=== PATIENT | male | born 1955 | race Caucasian/White ===

== ENCOUNTER 2019-12-26 11:53 | Inpatient (IN) | payer OTHER ==
[2019-12-26] MEDS ORDERED: Sodium Chloride 0.9% 2.5 ML Syringe FLUSH PRN ×2 (13:15→16:49)
[2019-12-26] MEDS ORDERED: Sodium Chloride 0.9% 10 ML Syringe FLUSH PRN ×2 (13:15)
[2019-12-26] MEDS ORDERED: Sodium Chloride 0.9% 1,000 ML IV ONE (13:15)
[2019-12-26] MEDS ORDERED: Prochlorperazine 10 MG/2 ML SDV IVPUSH ONE (13:16)
--- NOTE | 2019-12-26 14:17 | EDM.PDOC ---
ED [facility] GENERAL MEDICAL PROBLEM - General Chief Complaint: Gastrointestinal Problem Stated Complaint: DIAHREAH Time Seen by Provider: 12/26/19 12:20 - History of Present Illness INITIAL COMMENTS - FREE TEXT/NARRATIVE: HISTORY AND PHYSICAL: History of present illness: This 64-year-old male communicates by using his cell phone and having it read out because he has a tracheostomy. He had significant cancer in the past and has multiple medical problems. He reports today that he comes in with diffuse abdominal cramping, frequent diarrhea, and some intermittent blood from wiping. There is no dysentery or blood from the stool. He reports he feels dehydrated and is very thirsty. He rates his symptoms as severe. Denies any other associated signs or symptoms. No other modifying, aggravating or relieving factors. Review of systems: A 10-point review of systems, other than pertinent positives and negatives as stated per HPI, is otherwise negative. Past medical history: As per history of present illness and as reviewed below otherwise noncontributory. Surgical history: As per history of present illness and as reviewed below otherwise noncontributory. Social history: No reported history of drug or alcohol abuse. Family history: As per history of present illness and as reviewed below otherwise noncontributory. Physical exam: VITAL SIGNS: Reviewed. GENERAL: Appears chronically ill but not toxic. HEAD: No signs of head trauma. EYES: Pupils are equal. Extraocular motions intact. EARS: Hearing grossly intact. MOUTH: Oropharynx is normal. With dry mucous membranes NECK: No adenopathy, no JVD. Tracheostomy is in place and is clean dry and intact CHEST: Chest with clear breath sounds bilaterally. No wheezes, rales, or rhonchi. CARDIAC: Regular rate and rhythm. Normal S1 and S2, without murmurs, gallops, or rubs. VASCULAR: Peripheral pulses normal and equal in all extremities. ABDOMEN: Soft, mild diffuse tenderness. No distention. No rebound or guarding. No masses palpated. MUSCULOSKELETAL: Good range of motion of all major joints. Extremities without clubbing, cyanosis or edema. NEUROLOGIC EXAM: Alert and oriented x 3. No focal sensory or motor deficits. Speech normal. Follows commands. PSYCHIATRIC: Mood normal. SKIN: No rash or lesions. Initial Differential Diagnosis & Plan: Patient has diarrhea with mild abdominal cramping. Etiologies include viral infection, bacterial infection, bowel obstruction, ischemic bowel. We will obtain a CT scan with abdomen pelvis and give IV fluids and other medications to see how he is doing. We will perform a comprehensive laboratory work-up. Definitive disposition and diagnosis as appropriate pending reevaluation and review of above. - Related Data Allergies Allergy/AdvReac Type Severity Reaction Status Date / Time gabapentin Allergy Cannot Verified 12/26/19 12:48 Remember midazolam HCl [From Versed] Allergy Seizure Verified 12/26/19 12:48 venom-honey bee Allergy Difficulty Verified 12/26/19 12:48 [bee venom (honey bee)] Standing Home Meds: Home Meds Simvastatin [Zocor] 40 mg PO BEDTIME 08/20/17 [History] Lubricating Top Jelly Bacterio 1 applic TOP ASDIRECTED 12/27/18 [History] Sennosides 8.6 mg PO BID 12/27/18 [History] lisinopriL [Prinivil] 20 mg PO DAILY 12/26/19 [History] Past Medical History HEENT History: Reports: Impaired Vision Other HEENT History: wears glasses Cardiovascular History: Reports: High Cholesterol, Hypertension Respiratory History: Reports: Other (See Below) Other Respiratory History: SOB from radiation tx to throat Gastrointestinal History: Reports: GERD Other Gastrointestinal History: current esophageal cancer Genitourinary History: Reports: None Musculoskeletal History: Reports: Arthritis, Fracture Other Musculoskeletal History: states "multiple" fx Neurological History: Reports: None Psychiatric History: Reports: None Endocrine/Metabolic History: Reports: Diabetes, Type II, Obesity/BMI 30+ Other Endocrine/Metabolic History: pt states he's no longer on medication for DM Hematologic History: Reports: None Immunologic History: Reports: None Oncologic (Cancer) History: Reports: Other (See Below) Other Oncologic History: Throat Dermatologic History: Reports: None Other Dermatologic History: rash on right hand - Infectious Disease History Infectious Disease History: Reports: Chicken Pox, Measles - Past Surgical History Head Surgeries/Procedures: Reports: None Cardiovascular Surgical History: Reports: None Respiratory Surgical History: Reports: None GI Surgical History: Reports: None Male Surgical History: Reports: None Endocrine Surgical History: Reports: None Musculoskeletal Surgical History: Reports: None Oncologic Surgical History: Reports: None Other Oncologic Surgeries/Procedures: Radiation Therapy Social & Family History - Family History Family Medical History: Noncontributory - Tobacco Use Tobacco Use Status *Q: Never Tobacco User - Caffeine Use Caffeine Use: Reports: None - Recreational Drug Use Recreational Drug Use: No ED ROS GENERAL - Review of Systems Review Of Systems: See Below (noted) ED EXAM, GI/ABD - Physical Exam Exam: See Below (noted) #1 Interpretation EKG Interpretation Comments: 12 lead EKG interpretation Obtained: December 26, 2019 at 1349 Rhythm: Junctional rhythm Rate: 65 [place]: Left axis deviation Intervals: Prolonged QT interval [address]/T Segments: Nonspecific T wave abnormality Interpretation: Junctional rhythm, left axis deviation, prolonged QT interval, nonspecific T wave abnormality Course - Vital Signs Last Recorded V/S: Last Vital Signs Temp 96 F L 12/26/19 12:46 Pulse 68 12/26/19 18:43 Resp 16 12/26/19 12:46 BP 153/101 H 12/26/19 18:43 Pulse Ox 94 L 12/26/19 18:43 - Orders/Labs/Meds Orders: Active Orders 24 hr Category Date Time Status EKG 12 Lead [EKG Documentation Completion] [RC] STAT Care 12/26/19 13:16 Active C DIFFICILE AG/TOXIN W/REFLEX [RM] Stat Lab 12/26/19 15:51 Ordered STOOL CULTURE/SHIGA TOXIN [MREF] Stat Lab 12/26/19 15:51 Ordered Medication Orders Enoxaparin Sodium (Lovenox) 40 mg SUBCUT Q24H [facility] Dextrose/Sodium Chloride (Dextrose 5%-1/2 Ns) 1,000 mls @ 125 mls/hr IV Q8H [facility] Magnesium Sulfate 4 gm/ Premix 100 mls @ 33.333 mls/hr IV ONETIME ONE Stop: 12/26/19 19:48 Last Admin: 12/26/19 18:09 Dose: 33.333 mls/hr Documented by: NANCY Metronidazole 500 mg/ Premix 100 mls @ 100 mls/hr IV Q6H Y[facility] Metronidazole 500 mg/ Premix 100 mls @ 100 mls/hr IV ONETIME ONE Stop: 12/26/19 19:14 Last Admin: 12/26/19 18:09 Dose: 100 mls/hr Documented by: NANCY Levofloxacin/Dextrose 750 mg/ (Premix) 150 mls @ 100 mls/hr IV Q24H [facility] Morphine Sulfate (Morphine) 2 mg IVPUSH Q2H PRN PRN Reason: Pain (severe 7-10) Ondansetron HCl (Zofran) 4 mg IVPUSH Q4H PRN PRN Reason: Nausea Sodium Chloride (Saline Flush) 2.5 ml FLUSH ASDIRECTED PRN PRN Reason: Keep Vein Open Labs: Laboratory Tests 12/26/19 12/26/19 12/26/19 Range/Units 14:13 14:30 14:30 WBC 4.27 (4.0-11.0) K/uL RBC 3.84 L (4.50-5.90) M/uL Hgb 11.1 L (13.0-17.0) g/dL Hct 34.0 L (38.0-50.0) % MCV 88.5 (80.0-98.0) fL MCH 28.9 (27.0-32.0) pg MCHC 32.6 (31.0-37.0) g/dL RDW Std Deviation 50.2 (28.0-62.0) fl RDW Coeff of Aster 16 H (11.0-15.0) % Plt Count 224 (150-400) K/uL MPV 9.80 (7.40-12.00) fL Add Manual Diff YES Neutrophils % (Manual) 71 (48.0-80.0) % Band Neutrophils % 15 % Lymphocytes % (Manual) 6 L (16.0-40.0) % Monocytes % (Manual) 8 (0.0-15.0) % Nucleated RBC % 0.0 /100WBC Absolute Seg Neuts 3.0 (1.4-5.7) Band Neutrophils # 0.6 Lymphocytes # (Manual) 0.3 L (0.6-2.4) Monocytes # (Manual) 0.3 (0.0-0.8) Nucleated RBCs # 0 K/uL Sodium 140 (136-148) mmol/L Potassium 2.8 L (3.5-5.1) mmol/L Chloride 100 (98-107) mmol/L Carbon Dioxide 31.1 (21.0-32.0) mmol/L BUN 15 (7.0-18.0) mg/dL Creatinine 1.3 (0.8-1.3) mg/dL Est Cr Clr Drug Dosing 52.96 mL/min Estimated GFR (MDRD) 55.4 ml/min Glucose 73 L (74-106) mg/dL Calcium 8.1 L (8.5-10.1) mg/dL Magnesium 1.6 L (1.8-2.4) mg/dL Total Bilirubin 0.6 (0.2-1.0) mg/dL AST 37 (15-37) IU/L ALT 27 (14-63) IU/L Alkaline Phosphatase 54 (46-116) U/L Total Protein 7.4 (6.4-8.2) g/dL Albumin 3.5 (3.4-5.0) g/dL Globulin 3.9 (2.6-4.0) g/dL Albumin/Globulin Ratio 0.9 (0.9-1.6) Lipase 100 (73-393) U/L Urine Color Urine Appearance Urine pH (5.0-8.0) Ur Specific [place] (1.001-1.035) Urine Protein (NEGATIVE) mg/dL Urine Glucose (UA) (NEGATIVE) mg/dL Urine Ketones (NEGATIVE) mg/dL Urine Occult Blood (NEGATIVE) Urine Nitrite (NEGATIVE) Urine Bilirubin (NEGATIVE) Urine Urobilinogen (<2.0) EU/dL Ur Leukocyte Esterase (NEGATIVE) Urine RBC (0-2/HPF) Urine WBC (0-5/HPF) Ur Epithelial Cells (NONE-FEW) Urine Bacteria (NEGATIVE) 12/26/19 Range/Units 15:30 WBC (4.0-11.0) K/uL RBC (4.50-5.90) M/uL Hgb (13.0-17.0) g/dL Hct (38.0-50.0) % MCV (80.0-98.0) fL MCH (27.0-32.0) pg MCHC (31.0-37.0) g/dL RDW Std Deviation (28.0-62.0) fl RDW Coeff of Aster (11.0-15.0) % Plt Count (150-400) K/uL MPV (7.40-12.00) fL Add Manual Diff Neutrophils % (Manual) (48.0-80.0) % Band Neutrophils % % Lymphocytes % (Manual) (16.0-40.0) % Monocytes % (Manual) (0.0-15.0) % Nucleated RBC % /100WBC Absolute Seg Neuts (1.4-5.7) Band Neutrophils # Lymphocytes # (Manual) (0.6-2.4) Monocytes # (Manual) (0.0-0.8) Nucleated RBCs # K/uL Sodium (136-148) mmol/L Potassium (3.5-5.1) mmol/L Chloride (98-107) mmol/L Carbon Dioxide (21.0-32.0) mmol/L BUN (7.0-18.0) mg/dL Creatinine (0.8-1.3) mg/dL Est Cr Clr Drug Dosing mL/min Estimated GFR (MDRD) ml/min Glucose (74-106) mg/dL Calcium (8.5-10.1) mg/dL Magnesium (1.8-2.4) mg/dL Total Bilirubin (0.2-1.0) mg/dL AST (15-37) IU/L ALT (14-63) IU/L Alkaline Phosphatase (46-116) U/L Total Protein (6.4-8.2) g/dL Albumin (3.4-5.0) g/dL Globulin (2.6-4.0) g/dL Albumin/Globulin Ratio (0.9-1.6) Lipase (73-393) U/L Urine Color YELLOW Urine Appearance CLEAR Urine pH 7.0 (5.0-8.0) Ur Specific [place] 1.020 (1.001-1.035) Urine Protein 30 H (NEGATIVE) mg/dL Urine Glucose (UA) NEGATIVE (NEGATIVE) mg/dL Urine Ketones NEGATIVE (NEGATIVE) mg/dL Urine Occult Blood NEGATIVE (NEGATIVE) Urine Nitrite NEGATIVE (NEGATIVE) Urine Bilirubin NEGATIVE (NEGATIVE) Urine Urobilinogen 0.2 (<2.0) EU/dL Ur Leukocyte Esterase NEGATIVE (NEGATIVE) Urine RBC 0-1 (0-2/HPF) Urine WBC 0-1 (0-5/HPF) Ur Epithelial Cells RARE (NONE-FEW) Urine Bacteria RARE (NEGATIVE) Meds: Medications Generic Name Dose Route Start Last Admin Trade Name Freq PRN Reason Stop Dose Admin Enoxaparin Sodium 40 mg 12/26/19 17:00 Lovenox SUBCUT Q24H [facility] Dextrose/Sodium Chloride 1,000 mls @ 125 mls/hr 12/26/19 17:00 Dextrose 5%-1/2 Ns IV Q8H [facility]USU[facility] Magnesium Sulfate 4 gm/ Premix 100 mls @ 33.333 mls/hr 12/26/19 16:49 12/26/19 18:09 IV 12/26/19 19:48 33.333 mls/hr ONETIME ONE Administration Metronidazole 500 mg/ Premix 100 mls @ 100 mls/hr 12/27/19 00:00 IV Q6H YUSUF Metronidazole 500 mg/ Premix 100 mls @ 100 mls/hr 12/26/19 18:15 12/26/19 18:09 IV 12/26/19 19:14 100 mls/hr ONETIME ONE Administration Levofloxacin/Dextrose 750 mg/ 150 mls @ 100 mls/hr 12/26/19 21:00 Premix IV Q24H YUSUF Morphine Sulfate 2 mg 12/26/19 16:47 Morphine IVPUSH Q2H PRN Pain (severe 7-10) Ondansetron HCl 4 mg 12/26/19 16:47 Zofran IVPUSH Q4H PRN Nausea Sodium Chloride 2.5 ml 12/26/19 16:49 Saline Flush FLUSH ASDIRECTED PRN Keep Vein Open Discontinued Medications Generic Name Dose Route Start Last Admin Trade Name Freq PRN Reason Stop Dose Admin Sodium Chloride 1,000 mls @ 999 mls/hr 12/26/19 13:15 12/26/19 14:26 Normal Saline IV 12/26/19 14:15 999 mls/hr BOLUS ONE Administration Potassium Chloride/Sodium Chloride 1,000 mls @ 500 mls/hr 12/26/19 16:00 12/26/19 16:10 Normal Saline With 20 Meq Kcl IV 12/26/19 17:59 500 mls/hr ONETIME ONE Administration Levofloxacin/Dextrose 750 mg/ 150 mls @ 100 mls/hr 12/26/19 16:30 12/26/19 18:38 Premix IV Not Given Q24H [facility]USUF Potassium Bicarbonate 50 meq 12/26/19 15:23 12/26/19 16:00 Klor-Con Ef PO 12/26/19 15:24 50 meq NOW STA Administration Prochlorperazine Edisylate 10 mg 12/26/19 13:16 12/26/19 14:26 Compazine IVPUSH 12/26/19 13:17 10 mg ONETIME ONE Administration Sodium Chloride 10 ml 12/26/19 13:15 Saline Flush FLUSH ASDIRECTED PRN Keep Vein Open Sodium Chloride 10 ml 12/26/19 13:15 Saline Flush FLUSH ASDIRECTED PRN Keep Vein Open Sodium Chloride 2.5 ml 12/26/19 13:15 Saline Flush FLUSH ASDIRECTED PRN Keep Vein Open - Re-Assessments/Exams Free Text/Narrative Re-Assessment/Exam: 12/26/19 18:49 Patient found to have significant hypokalemia, no acute renal failure, and hypomagnesemia. We have started replacement of his potassium and magnesium in the emergency department. He is found to be COVID-19 positive. This is created some difficulty since he is trached. We will admit him to the hospital. My diagnostic impression: 1. Acute dehydration 2. COVID-19 positive status with GI symptoms 3. Acute hypokalemia 4. Acute hypomagnesemia Departure - Departure Time of Disposition: 18:50 Disposition: Admitted As Inpatient 65 Clinical Impression: Viral infection - Discharge Information *PRESCRIPTION DRUG MONITORING PROGRAM REVIEWED*: Not Applicable *COPY OF PRESCRIPTION DRUG MONITORING REPORT IN PATIENT SNEHA: Not Applicable Sepsis Event Note (ED) - Evaluation Sepsis Screening Result: No Definite Risk - Focused Exam Vital Signs: Vital Signs Temp Pulse Resp BP Pulse Ox 12/26/19 14:30 64 94 L 12/26/19 14:13 66 129/96 H 94 L 12/26/19 13:59 65 150/95 H 94 L 12/26/19 12:46 96 F L 65 16 142/93 H 93 L - My Orders Last 24 Hours: My Active Orders 12/26/19 13:16 EKG 12 Lead [EKG Documentation Completion] [RC] STAT 12/26/19 15:51 C DIFFICILE AG/TOXIN W/REFLEX [RM] Stat STOOL CULTURE/SHIGA TOXIN [MREF] Stat - Assessment/Plan Last 24 Hours: My Active Orders 12/26/19 13:16 EKG 12 Lead [EKG Documentation Completion] [RC] STAT 12/26/19 15:51 C DIFFICILE AG/TOXIN W/REFLEX [RM] Stat STOOL CULTURE/SHIGA TOXIN [MREF] Stat
[2019-12-26 15:02] LABS: CARBON DIOXIDE,CO2 31.1 mmol/L (21.0-32.0); POTASSIUM,K 2.8 mmol/L (3.5-5.1)
[2019-12-26] MEDS ORDERED: Potassium Bicarbonate 25 MEQ Tab.EFF PO STA (15:23)
[2019-12-26] MEDS ORDERED: Potassium Chloride Riders 20 MEQ in Premix Bag 1 BAG IV ONE (15:23)
--- NOTE | 2019-12-26 15:25 | CT ---
Indication: Abdominal pain and vomiting, history of laryngeal cancer Technique: Nonenhanced axial CT imaging through the abdomen and pelvis. Sagittal and coronal reconstructions are provided. Comparison: CT abdomen pelvis without contrast 08/24/2017 Findings: There is unremarkable noncontrast appearance of the liver, gallbladder, spleen, pancreas and adrenal gland. No lymphadenopathy is identified in the abdomen and pelvis. There is normal caliber of the abdominal aorta. There are multiple nonobstructing left renal stones, largest measuring 10 mm. A few punctate nonobstructing stones are also noted in the right kidney. There is no hydronephrosis. The stomach and duodenum are unremarkable. There are no abnormally dilated small bowel loops. The appendix is noninflamed. There are areas of colonic wall thickening, worst in the ascending colon, descending colon, and rectum. There is mild associated fat stranding. There is no free fluid. There is no pneumoperitoneum. Degenerative changes are noted in the spine, significantly changed from prior. Small pleural effusion is partially visualized on the right. There is moderate left lung base atelectasis. Impression: 1. Scattered areas of colonic wall thickening with adjacent inflammatory fat stranding, concerning for acute colitis. 2. Bilateral nephrolithiasis. No urinary obstruction. 3. Partially visualized small right pleural effusion. Please note that all CT scans at this facility use dose modulation, iterative reconstruction, and/or weight-based dosing when appropriate to reduce radiation dose to as low as reasonably achievable. Dictated by Letha Jiménez MD @ Dec 26 2019 3:05PM Signed by Dr. Letha Jiménez @ Dec 26 2019 3:23PM
[2019-12-26] MEDS ORDERED: metroNIDAZOLE/Normal Saline 500 MG in Premix Bag 1 BAG IV ONE ×2 (15:51→18:15)
[2019-12-26] MEDS ORDERED: NS + KCl 20mEq/L 1,000 ML IV ONE (16:00)
[2019-12-26] MEDS ORDERED: Levofloxacin/Dextrose 5%-Water 750 MG in Premix Bag 1 BAG IV SCH (16:30)
--- NOTE | 2019-12-26 16:38 | PCM.HP.2 ---
H&P History of Present Illness - General Date of Service: 12/26/19 Admit Problem/Dx: Admission Diagnosis/Problem Admission Diagnosis/Problem Abdominal pain Source of Information: Patient, Family (sister at bedside to help with communication) History Limitations: Reports: No Limitations - History of Present Illness Initial Comments - Free Text/Narative: This 64 year old male with pmh of laryngeal cancer s/p trach, HTN and peripheral neuropathy presented to the ED today with weakness, diarrhea x 2 weeks, N?V and overall not feeling well. he reports he has had some loose stools, which have been present for approximately 2 weeks. No recent antibiotic use, no other sick contacts and no recent chemotherapy. He reports the last chemo or radiation was 5 years ago. He reports he has been staying out of the [facility], but sisters provide care for him and have been out and about. He reports the stool is brown in color, no black bloody stools. reports abdominal pain is cramping and sharp as well. reports rectum is very irritated from stools. Intermittent nausea, but is hungry. Tolerating CL at home. No urinary concerns. NO chest pain or SOB. Trach is stable, has cough and sputum production, but nothing more than normal. Denies current tobacco use, alcohol use or recreational drug use. NO recent history of colonoscopy. He has had abdominal surgeries with mesh placement in the past. [facility] and was instructed to come [facility] as imodium at home was not helping. In the ED no leukocytosis noted, but bandemia is noted with 15% bands. Hgb 11.1 Hypokalemia, 2.[address] abdomen/ pelvis revealed areas of colonic wall thickening, worst in ascending color, descending colon and rectum, with mild associated fat stranding. No free fluid and no pneumoperitoneum. He was given IVFs and Flagyl in the ED. Admission for colitis, abdominal pain and hypokalemia. PCP, [place] [facility] - Related Data Allergies/Adverse Reactions: Allergies Allergy/AdvReac Type Severity Reaction Status Date / Time gabapentin Allergy Cannot Verified 12/26/19 12:48 Remember midazolam HCl [From Versed] Allergy Seizure Verified 12/26/19 12:48 venom-honey bee Allergy Difficulty Verified 12/26/19 12:48 [bee venom (honey bee)] Standing Home Medications: Home Meds Simvastatin [Zocor] 40 mg PO BEDTIME 08/20/17 [History] Lubricating Top Jelly Bacterio 1 applic TOP ASDIRECTED 12/27/18 [History] Sennosides 8.6 mg PO BID 12/27/18 [History] lisinopriL [Prinivil] 20 mg PO DAILY 12/26/19 [History] Past Medical History HEENT History: Reports: Impaired Vision Other HEENT History: wears glasses Cardiovascular History: Reports: High Cholesterol, Hypertension Respiratory History: Reports: Other (See Below) Other Respiratory History: SOB from radiation tx to throat Gastrointestinal History: Reports: GERD Other Gastrointestinal History: current esophageal cancer Genitourinary History: Reports: None Musculoskeletal History: Reports: Arthritis, Fracture Other Musculoskeletal History: states "multiple" fx Neurological History: Reports: None Psychiatric History: Reports: None Endocrine/Metabolic History: Reports: Diabetes, Type II, Obesity/BMI 30+ Other Endocrine/Metabolic History: pt states he's no longer on medication for DM Hematologic History: Reports: None Immunologic History: Reports: None Oncologic (Cancer) History: Reports: Other (See Below) Other Oncologic History: Throat Dermatologic History: Reports: None Other Dermatologic History: rash on right hand - Infectious Disease History Infectious Disease History: Reports: Chicken Pox, Measles - Past Surgical History Head Surgeries/Procedures: Reports: None Cardiovascular Surgical History: Reports: None Respiratory Surgical History: Reports: None GI Surgical History: Reports: None Male Surgical History: Reports: None Endocrine Surgical History: Reports: None Musculoskeletal Surgical History: Reports: None Oncologic Surgical History: Reports: None Other Oncologic Surgeries/Procedures: Radiation Therapy Social & Family History - Family History Family Medical History: Noncontributory - Tobacco Use Tobacco Use Status *Q: Never Tobacco User - Caffeine Use Caffeine Use: Reports: None - Recreational Drug Use Recreational Drug Use: No H&P Review of Systems - Review of Systems: Review Of Systems: See Below General: Reports: Chills, Malaise, Weakness, Fatigue, Decreased Appetite HEENT: Reports: No Symptoms. Denies: Headaches, Hearing Changes, Sore Throat Pulmonary: Reports: Cough, Sputum (but not any different than normal, and no change in color). Denies: Shortness of Breath Cardiovascular: Reports: No Symptoms. Denies: Chest Pain, Edema, Lightheadedness Gastrointestinal: Reports: Abdominal Pain (lower abdomen), Diarrhea, Decreased Appetite, Distension, Nausea, Other (bloated). Denies: Bloody Stool Skin: Reports: No Symptoms Psychiatric: Reports: No Symptoms Neurological: Reports: No Symptoms Hematologic/Lymphatic: Reports: No Symptoms Immunologic: Reports: No Symptoms Exam - Exam Exam: See Below - Vital Signs Vital Signs: Last Vital Signs Temp 96 F L 12/26/19 12:46 Pulse 65 12/26/19 12:46 Resp 16 12/26/19 12:46 BP 142/93 H 12/26/19 12:46 Pulse Ox 93 L 12/26/19 12:46 Weight: 86.183 kg - Exam Quality Assessment: DVT Prophylaxis General: Alert, Oriented, Cooperative HEENT: Conjunctiva Clear, Mucosa Moist & [place], Other (trach in place, no erythema or drainage) Neck: Supple, Other (surgical deformity from resection and trach. ) Lungs: Clear to Auscultation, Normal Respiratory Effort, Other (bronchial lung sounds, otherwise clear) Cardiovascular: Regular Rate, Regular Rhythm, Normal S1 GI/Abdominal Exam: Soft, Tender (lower abdomen). No: Normal Bowel Sounds (hyperactive) Extremities: Normal Inspection, Normal Range of Motion, Non-Tender Neuro Extensive - Mental Status: Alert, Oriented x3, Normal Mood/Affect Neuro Extensive - Motor, Sensory, Reflexes: CN II-XII Intact Psychiatric: Alert, Normal Affect, Normal Mood - Patient Data Lab Results Last 24 hrs: Laboratory Results - last 24 hr 12/26/19 12/26/19 12/26/19 Range/Units 14:30 14:30 15:30 WBC 4.27 (4.0-11.0) K/uL RBC 3.84 L (4.50-5.90) M/uL Hgb 11.1 L (13.0-17.0) g/dL Hct 34.0 L (38.0-50.0) % MCV 88.5 (80.0-98.0) fL MCH 28.9 (27.0-32.0) pg MCHC 32.6 (31.0-37.0) g/dL RDW Std Deviation 50.2 (28.0-62.0) fl RDW Coeff of Aster 16 H (11.0-15.0) % Plt Count 224 (150-400) K/uL MPV 9.80 (7.40-12.00) fL Add Manual Diff YES Neutrophils % (Manual) 71 (48.0-80.0) % Band Neutrophils % 15 % Lymphocytes % (Manual) 6 L (16.0-40.0) % Monocytes % (Manual) 8 (0.0-15.0) % Nucleated RBC % 0.0 /100WBC Absolute Seg Neuts 3.0 (1.4-5.7) Band Neutrophils # 0.6 Lymphocytes # (Manual) 0.3 L (0.6-2.4) Monocytes # (Manual) 0.3 (0.0-0.8) Nucleated RBCs # 0 K/uL Sodium 140 (136-148) mmol/L Potassium 2.8 L (3.5-5.1) mmol/L Chloride 100 (98-107) mmol/L Carbon Dioxide 31.1 (21.0-32.0) mmol/L BUN 15 (7.0-18.0) mg/dL Creatinine 1.3 (0.8-1.3) mg/dL Est Cr Clr Drug Dosing 52.96 mL/min Estimated GFR (MDRD) 55.4 ml/min Glucose 73 L (74-106) mg/dL Calcium 8.1 L (8.5-10.1) mg/dL Total Bilirubin 0.6 (0.2-1.0) mg/dL AST 37 (15-37) IU/L ALT 27 (14-63) IU/L Alkaline Phosphatase 54 (46-116) U/L Total Protein 7.4 (6.4-8.2) g/dL Albumin 3.5 (3.4-5.0) g/dL Globulin 3.9 (2.6-4.0) g/dL Albumin/Globulin Ratio 0.9 (0.9-1.6) Lipase 100 (73-393) U/L Urine Color YELLOW Urine Appearance CLEAR Urine pH 7.0 (5.0-8.0) Ur Specific [place] 1.020 (1.001-1.035) Urine Protein 30 H (NEGATIVE) mg/dL Urine Glucose (UA) NEGATIVE (NEGATIVE) mg/dL Urine Ketones NEGATIVE (NEGATIVE) mg/dL Urine Occult Blood NEGATIVE (NEGATIVE) Urine Nitrite NEGATIVE (NEGATIVE) Urine Bilirubin NEGATIVE (NEGATIVE) Urine Urobilinogen 0.2 (<2.0) EU/dL Ur Leukocyte Esterase NEGATIVE (NEGATIVE) Urine RBC 0-1 (0-2/HPF) Urine WBC 0-1 (0-5/HPF) Ur Epithelial Cells RARE (NONE-FEW) Urine Bacteria RARE (NEGATIVE) Result Diagrams: 12/26/19 14:30 12/26/19 14:30 Sepsis Event Note - Evaluation Sepsis Screening Result: No Definite Risk - Focused Exam Vital Signs: Vital Signs Temp Pulse Resp BP Pulse Ox 12/26/19 12:46 96 F L 65 16 142/93 H 93 L - Problem List (1) Colitis SNOMED Code(s): 89629361 ICD Code: K52.9 - NONINFECTIVE GASTROENTERITIS AND COLITIS, UNSPECIFIED Status: Acute Current Visit: Yes (2) Diarrhea SNOMED Code(s): 41611335 ICD Code: R19.7 - DIARRHEA, UNSPECIFIED Status: Acute Current Visit: Yes (3) COVID-19 SNOMED Code(s): 406443866 ICD Code: U07.1 - COVID-19 Status: Acute Current Visit: Yes (4) Hx of laryngeal cancer SNOMED Code(s): 594957969, 094574709 ICD Code: Z85.21 - PERSONAL HISTORY OF MALIGNANT NEOPLASM OF LARYNX Status: Chronic Current Visit: Yes (5) Tracheostomy dependent SNOMED Code(s): 211980383 ICD Code: Z93.0 - TRACHEOSTOMY STATUS Status: Chronic Current Visit: Yes (6) HTN (hypertension) SNOMED Code(s): 30535673 ICD Code: I10 - ESSENTIAL (PRIMARY) HYPERTENSION Status: Chronic Current Visit: Yes (7) Peripheral neuropathy SNOMED Code(s): 457632536 ICD Code: G62.9 - POLYNEUROPATHY, UNSPECIFIED Status: Chronic Current Visit: Yes (8) Hypokalemia SNOMED Code(s): 69128415 ICD Code: E87.6 - HYPOKALEMIA Status: Acute Current Visit: Yes (9) Hypomagnesemia SNOMED Code(s): 738322596 ICD Code: E83.42 - HYPOMAGNESEMIA Status: Acute Current Visit: Yes Problem List Initiated/Reviewed/Updated: Yes Orders Last 24hrs: Active Orders 24 hr Category Date Time Status Patient Status [ADT] Routine ADT 12/26/19 15:53 Active EKG 12 Lead [EKG Documentation Completion] [RC] STAT Care 12/26/19 13:16 Active C DIFFICILE AG/TOXIN W/REFLEX [RM] Stat Lab 12/26/19 15:51 Ordered STOOL CULTURE/SHIGA TOXIN [MREF] Stat Lab 12/26/19 15:51 Ordered Levofloxacin/Dextrose 5%-Water [Levaquin in D5W 750 MG/ Med 12/26/19 16:30 Ordered 150 ML] 750 mg Premix Bag 1 bag IV Q24H NS + KCl 20mEq/L [Normal Saline with 20 mEq KCl] 1,000 Med 12/26/19 16:00 Active ml IV ONETIME Sodium Chloride 0.9% [Saline Flush] Med 12/26/19 13:15 Active 10 ml FLUSH ASDIRECTED PRN Sodium Chloride 0.9% [Saline Flush] Med 12/26/19 13:15 Active 10 ml FLUSH ASDIRECTED PRN Sodium Chloride 0.9% [Saline Flush] Med 12/26/19 13:15 Active 2.5 ml FLUSH ASDIRECTED PRN metroNIDAZOLE/Normal Saline [Flagyl 500 MG in NS 100 ML Med 12/26/19 15:51 Active ] 500 mg Premix Bag 1 bag IV ONETIME Saline Lock Insert [OM.PC] Stat Oth 12/26/19 13:15 Ordered Medication Orders Potassium Chloride/Sodium Chloride (Normal Saline With 20 Meq Kcl) 1,000 mls @ 500 mls/hr IV ONETIME ONE Stop: 12/26/19 17:59 Last Admin: 12/26/19 16:10 Dose: 500 mls/hr Documented by: NANCY Metronidazole 500 mg/ Premix 100 mls @ 100 mls/hr IV ONETIME ONE Stop: 12/26/19 16:50 Levofloxacin/Dextrose 750 mg/ (Premix) 150 mls @ 100 mls/hr IV Q24H YUSUF Sodium Chloride (Saline Flush) 10 ml FLUSH ASDIRECTED PRN PRN Reason: Keep Vein Open Sodium Chloride (Saline Flush) 10 ml FLUSH ASDIRECTED PRN PRN Reason: Keep Vein Open Sodium Chloride (Saline Flush) 2.5 ml FLUSH ASDIRECTED PRN PRN Reason: Keep Vein Open Assessment/Plan Comment:: This 64 year old male admitted with diarrhea, dehydration, hypokalemia and colitis, found to be COVID 19 positive. 1. Abdominal pain, diarrhea, colitis - CT revealed colitis - Obtain stool studies - Continue with Flagyl add Levaquin - IVFs with D51/2 NS due to lower blood glucoses - Check BS every 6 hours - Bowel rest - Morphine PRN pain - Zofran PRN nausea 2. Hypokalemia, hypomagnesemia - Replaced with 70 meq in ED, PO and IV - Give 4 gm IV Magnesium - Recheck in am. 3. Covid 19 - Could be cause of colitis - Monitor - No respiratory symptoms currently 4. HTN - NPO, monitor overnight with IVF hydration 5. Tracheostomy: - Cares per nursing - sister helps with communications - suctioning PRN VTE prophylaxis: Lovenox Dispo: - Mortality Measure Prognosis:: Good
[2019-12-26] MEDS ORDERED: Morphine 2 MG/ML SYRINGE IVPUSH PRN (16:47)
[2019-12-26] MEDS ORDERED: Ondansetron 4 MG/2 ML SDV IVPUSH PRN (16:47)
[2019-12-26] MEDS ORDERED: Magnesium Sulfate/Water 4 GM in Premix Bag 1 BAG IV ONE (16:49)
[2019-12-26] MEDS: Enoxaparin 40 MG/0.4 ML Syringe SUBCUT SCH (20:01)
[2019-12-26] MEDS: Dextrose 5%-0.45% NaCl 1,000 ML IV SCH (20:04)
[2019-12-26] MEDS: Levofloxacin/Dextrose 5%-Water 750 MG in Premix Bag 1 BAG IV SCH (20:07)
[2019-12-27] MEDS: metroNIDAZOLE/Normal Saline 500 MG in Premix Bag 1 BAG IV SCH ×5 (00:12→23:51)
[2019-12-27] MEDS: Dextrose 5%-0.45% NaCl 1,000 ML IV SCH ×3 (05:33→17:11)
[2019-12-27 07:08] LABS: BLOOD UREA NITROGEN,BUN 12 mg/dL (7.0-18.0); CARBON DIOXIDE,CO2 28.3 mmol/L (21.0-32.0); CHLORIDE,CL 101 mmol/L (98-107); GLUCOSE RANDOM 79 mg/dL (74-106); POTASSIUM,K 2.9 mmol/L (3.5-5.1); SODIUM,NA 139 mmol/L (136-148)
[2019-12-27] MEDS ORDERED: NACL IV ONE (08:15)
[2019-12-27] MEDS ORDERED: DEXTROSE IV ONE (08:15)
[2019-12-27] MEDS ORDERED: POTASSIUM PHOSPHATES IV ONE (08:15)
[2019-12-27] MEDS ORDERED: Potassium Chloride 20 MEQ Tab.ER PO ONE ×2 (08:38→16:05)
--- NOTE | 2019-12-27 11:17 | PCM.PN ---
- General Info Date of Service: 12/27/19 Admission Dx/Problem (Free Text): Admission Diagnosis/Problem Admission Diagnosis/Problem Abdominal pain Subjective Update: Doing much better today, no chest pain or SOB. Abdominal pain is gone, no further diarrhea. Wants to eat. Functional Status: Reports: Pain Controlled, Tolerating Diet, Ambulating, Urinating - Review of Systems General: Reports: No Symptoms. Denies: Fatigue, Malaise Pulmonary: Reports: No Symptoms. Denies: Shortness of Breath Cardiovascular: Reports: No Symptoms. Denies: Chest Pain Gastrointestinal: Reports: No Symptoms. Denies: Abdominal Pain, Diarrhea, Nausea, Vomiting Genitourinary: Reports: Frequency Musculoskeletal: Reports: No Symptoms Skin: Reports: No Symptoms Neurological: Reports: No Symptoms Psychiatric: Reports: No Symptoms - Patient Data Vitals - Most Recent: Last Vital Signs Temp 97.4 F 12/27/19 09:17 Pulse 94 12/27/19 09:17 Resp 16 12/27/19 09:17 BP 119/97 H 12/27/19 09:17 Pulse Ox 94 L 12/27/19 09:17 Weight - Most Recent: 89 kg I&O - Last 24 Hours: Intake & Output 12/26/19 12/27/19 12/27/19 22:59 06:59 14:59 Intake Total 1465 Output Total 1080 Balance 385 Lab Results Last 24 Hours: Laboratory Results - last 24 hr 12/26/19 12/26/19 12/26/19 Range/Units 14:13 14:30 14:30 WBC 4.27 (4.0-11.0) K/uL RBC 3.84 L (4.50-5.90) M/uL Hgb 11.1 L (13.0-17.0) g/dL Hct 34.0 L (38.0-50.0) % MCV 88.5 (80.0-98.0) fL MCH 28.9 (27.0-32.0) pg MCHC 32.6 (31.0-37.0) g/dL RDW Std Deviation 50.2 (28.0-62.0) fl RDW Coeff of Aster 16 H (11.0-15.0) % Plt Count 224 (150-400) K/uL MPV 9.80 (7.40-12.00) fL Add Manual Diff YES Neutrophils % (Manual) 71 (48.0-80.0) % Band Neutrophils % 15 % Lymphocytes % (Manual) 6 L (16.0-40.0) % Monocytes % (Manual) 8 (0.0-15.0) % Nucleated RBC % 0.0 /100WBC Absolute Seg Neuts 3.0 (1.4-5.7) Band Neutrophils # 0.6 Lymphocytes # (Manual) 0.3 L (0.6-2.4) Monocytes # (Manual) 0.3 (0.0-0.8) Nucleated RBCs # 0 K/uL Sodium 140 (136-148) mmol/L Potassium 2.8 L (3.5-5.1) mmol/L Chloride 100 (98-107) mmol/L Carbon Dioxide 31.1 (21.0-32.0) mmol/L BUN 15 (7.0-18.0) mg/dL Creatinine 1.3 (0.8-1.3) mg/dL Est Cr Clr Drug Dosing 52.96 mL/min Estimated GFR (MDRD) 55.4 ml/min Glucose 73 L (74-106) mg/dL POC Glucose (60-110) mg/dL Calcium 8.1 L (8.5-10.1) mg/dL Phosphorus (2.6-4.7) mg/dL Magnesium 1.6 L (1.8-2.4) mg/dL Total Bilirubin 0.6 (0.2-1.0) mg/dL AST 37 (15-37) IU/L ALT 27 (14-63) IU/L Alkaline Phosphatase 54 (46-116) U/L Total Protein 7.4 (6.4-8.2) g/dL Albumin 3.5 (3.4-5.0) g/dL Globulin 3.9 (2.6-4.0) g/dL Albumin/Globulin Ratio 0.9 (0.9-1.6) Lipase 100 (73-393) U/L Urine Color Urine Appearance Urine pH (5.0-8.0) Ur Specific [place] (1.001-1.035) Urine Protein (NEGATIVE) mg/dL Urine Glucose (UA) (NEGATIVE) mg/dL Urine Ketones (NEGATIVE) mg/dL Urine Occult Blood (NEGATIVE) Urine Nitrite (NEGATIVE) Urine Bilirubin (NEGATIVE) Urine Urobilinogen (<2.0) EU/dL Ur Leukocyte Esterase (NEGATIVE) Urine RBC (0-2/HPF) Urine WBC (0-5/HPF) Ur Epithelial Cells (NONE-FEW) Urine Bacteria (NEGATIVE) SARS-CoV-2 RNA (JAMI) (NEGATIVE) 12/26/19 12/26/19 12/26/19 Range/Units 15:30 16:40 21:59 WBC (4.0-11.0) K/uL RBC (4.50-5.90) M/uL Hgb (13.0-17.0) g/dL Hct (38.0-50.0) % MCV (80.0-98.0) fL MCH (27.0-32.0) pg MCHC (31.0-37.0) g/dL RDW Std Deviation (28.0-62.0) fl RDW Coeff of Aster (11.0-15.0) % Plt Count (150-400) K/uL MPV (7.40-12.00) fL Add Manual Diff Neutrophils % (Manual) (48.0-80.0) % Band Neutrophils % % Lymphocytes % (Manual) (16.0-40.0) % Monocytes % (Manual) (0.0-15.0) % Nucleated RBC % /100WBC Absolute Seg Neuts (1.4-5.7) Band Neutrophils # Lymphocytes # (Manual) (0.6-2.4) Monocytes # (Manual) (0.0-0.8) Nucleated RBCs # K/uL Sodium (136-148) mmol/L Potassium (3.5-5.1) mmol/L Chloride (98-107) mmol/L Carbon Dioxide (21.0-32.0) mmol/L BUN (7.0-18.0) mg/dL Creatinine (0.8-1.3) mg/dL Est Cr Clr Drug Dosing mL/min Estimated GFR (MDRD) ml/min Glucose (74-106) mg/dL POC Glucose 79 (60-110) mg/dL Calcium (8.5-10.1) mg/dL Phosphorus (2.6-4.7) mg/dL Magnesium (1.8-2.4) mg/dL Total Bilirubin (0.2-1.0) mg/dL AST (15-37) IU/L ALT (14-63) IU/L Alkaline Phosphatase (46-116) U/L Total Protein (6.4-8.2) g/dL Albumin (3.4-5.0) g/dL Globulin (2.6-4.0) g/dL Albumin/Globulin Ratio (0.9-1.6) Lipase (73-393) U/L Urine Color YELLOW Urine Appearance CLEAR Urine pH 7.0 (5.0-8.0) Ur Specific [place] 1.020 (1.001-1.035) Urine Protein 30 H (NEGATIVE) mg/dL Urine Glucose (UA) NEGATIVE (NEGATIVE) mg/dL Urine Ketones NEGATIVE (NEGATIVE) mg/dL Urine Occult Blood NEGATIVE (NEGATIVE) Urine Nitrite NEGATIVE (NEGATIVE) Urine Bilirubin NEGATIVE (NEGATIVE) Urine Urobilinogen 0.2 (<2.0) EU/dL Ur Leukocyte Esterase NEGATIVE (NEGATIVE) Urine RBC 0-1 (0-2/HPF) Urine WBC 0-1 (0-5/HPF) Ur Epithelial Cells RARE (NONE-FEW) Urine Bacteria RARE (NEGATIVE) SARS-CoV-2 RNA (JAMI) POSITIVE H (NEGATIVE) 12/27/19 12/27/19 12/27/19 Range/Units 05:31 06:30 06:30 WBC 3.70 L (4.0-11.0) K/uL RBC 3.53 L (4.50-5.90) M/uL Hgb 10.3 L (13.0-17.0) g/dL Hct 31.1 L (38.0-50.0) % MCV 88.1 (80.0-98.0) fL MCH 29.2 (27.0-32.0) pg MCHC 33.1 (31.0-37.0) g/dL RDW Std Deviation 50.3 (28.0-62.0) fl RDW Coeff of Aster 16 H (11.0-15.0) % Plt Count 220 (150-400) K/uL MPV 9.50 (7.40-12.00) fL Add Manual Diff YES Neutrophils % (Manual) 66 (48.0-80.0) % Band Neutrophils % 14 % Lymphocytes % (Manual) 10 L (16.0-40.0) % Monocytes % (Manual) 10 (0.0-15.0) % Nucleated RBC % 0.0 /100WBC Absolute Seg Neuts 2.4 (1.4-5.7) Band Neutrophils # 0.5 Lymphocytes # (Manual) 0.4 L (0.6-2.4) Monocytes # (Manual) 0.4 (0.0-0.8) Nucleated RBCs # 0 K/uL Sodium 139 (136-148) mmol/L Potassium 2.9 L (3.5-5.1) mmol/L Chloride 101 (98-107) mmol/L Carbon Dioxide 28.3 (21.0-32.0) mmol/L BUN 12 (7.0-18.0) mg/dL Creatinine 1.2 (0.8-1.3) mg/dL Est Cr Clr Drug Dosing 57.24 mL/min Estimated GFR (MDRD) > 60.0 ml/min Glucose 79 (74-106) mg/dL POC Glucose 80 (60-110) mg/dL Calcium 7.4 L (8.5-10.1) mg/dL Phosphorus 1.7 L (2.6-4.7) mg/dL Magnesium 2.0 (1.8-2.4) mg/dL Total Bilirubin 0.5 (0.2-1.0) mg/dL AST 36 (15-37) IU/L ALT 25 (14-63) IU/L Alkaline Phosphatase 50 (46-116) U/L Total Protein 6.7 (6.4-8.2) g/dL Albumin 3.2 L (3.4-5.0) g/dL Globulin 3.5 (2.6-4.0) g/dL Albumin/Globulin Ratio 0.9 (0.9-1.6) Lipase (73-393) U/L Urine Color Urine Appearance Urine pH (5.0-8.0) Ur Specific [place] (1.001-1.035) Urine Protein (NEGATIVE) mg/dL Urine Glucose (UA) (NEGATIVE) mg/dL Urine Ketones (NEGATIVE) mg/dL Urine Occult Blood (NEGATIVE) Urine Nitrite (NEGATIVE) Urine Bilirubin (NEGATIVE) Urine Urobilinogen (<2.0) EU/dL Ur Leukocyte Esterase (NEGATIVE) Urine RBC (0-2/HPF) Urine WBC (0-5/HPF) Ur Epithelial Cells (NONE-FEW) Urine Bacteria (NEGATIVE) SARS-CoV-2 RNA (JAMI) (NEGATIVE) Med Orders - Current: Current Medications Enoxaparin Sodium (Lovenox) 40 mg SUBCUT Q24H [facility] Last Admin: 12/26/19 20:01 Dose: 40 mg Documented by: Dextrose/Sodium Chloride (Dextrose 5%-1/2 Ns) 1,000 mls @ 125 mls/hr IV Q8H [facility] Last Admin: 12/27/19 09:16 Dose: Not Given Documented by: Metronidazole 500 mg/ Premix 100 mls @ 100 mls/hr IV Q6H [facility] Last Admin: 12/27/19 05:38 Dose: 100 mls/hr Documented by: Levofloxacin/Dextrose 750 mg/ (Premix) 150 mls @ 100 mls/hr IV Q24H [facility] Last Admin: 12/26/19 20:07 Dose: 100 mls/hr Documented by: Potassium Phosphate 30 mmole/ (Dextrose/Sodium Chloride) 1,010 mls @ 125 mls/hr IV ONETIME ONE Stop: 12/27/19 16:19 Last Admin: 12/27/19 09:10 Dose: 125 mls/hr Documented by: Morphine Sulfate (Morphine) 2 mg IVPUSH Q2H PRN PRN Reason: Pain (severe 7-10) Ondansetron HCl (Zofran) 4 mg IVPUSH Q4H PRN PRN Reason: Nausea Sodium Chloride (Saline Flush) 2.5 ml FLUSH ASDIRECTED PRN PRN Reason: Keep Vein Open Sodium Phosphate (Neutra-Phos) 250 mg PO QID [facility] Discontinued Medications Sodium Chloride (Normal Saline) 1,000 mls @ 999 mls/hr IV BOLUS ONE Stop: 12/26/19 14:15 Last Admin: 12/26/19 14:26 Dose: 999 mls/hr Documented by: Potassium Chloride/Sodium Chloride (Normal Saline With 20 Meq Kcl) 1,000 mls @ 500 mls/hr IV ONETIME ONE Stop: 12/26/19 17:59 Last Admin: 12/26/19 16:10 Dose: 500 mls/hr Documented by: Levofloxacin/Dextrose 750 mg/ (Premix) 150 mls @ 100 mls/hr IV Q24H [facility] Last Admin: 12/26/19 18:38 Dose: Not Given Documented by: Magnesium Sulfate 4 gm/ Premix 100 mls @ 33.333 mls/hr IV ONETIME ONE Stop: 12/26/19 19:48 Last Admin: 12/26/19 18:09 Dose: 33.333 mls/hr Documented by: Metronidazole 500 mg/ Premix 100 mls @ 100 mls/hr IV ONETIME ONE Stop: 12/26/19 19:14 Last Admin: 12/26/19 18:09 Dose: 100 mls/hr Documented by: Potassium Bicarbonate (Klor-Con Ef) 50 meq PO NOW STA Stop: 12/26/19 15:24 Last Admin: 12/26/19 16:00 Dose: 50 meq Documented by: Potassium Chloride (Klor-Con M20) 40 meq PO ONETIME ONE Stop: 12/27/19 08:39 Last Admin: 12/27/19 09:09 Dose: 40 meq Documented by: Prochlorperazine Edisylate (Compazine) 10 mg IVPUSH ONETIME ONE Stop: 12/26/19 13:17 Last Admin: 12/26/19 14:26 Dose: 10 mg Documented by: Sodium Chloride (Saline Flush) 10 ml FLUSH ASDIRECTED PRN PRN Reason: Keep Vein Open Sodium Chloride (Saline Flush) 10 ml FLUSH ASDIRECTED PRN PRN Reason: Keep Vein Open Sodium Chloride (Saline Flush) 2.5 ml FLUSH ASDIRECTED PRN PRN Reason: Keep Vein Open - Exam General: Alert, Oriented, Cooperative, No Acute Distress Neck: Other (trach in place, no issues.) Lungs: Clear to Auscultation, Normal Respiratory Effort Cardiovascular: Regular Rate, Regular Rhythm GI/Abdominal Exam: Normal Bowel Sounds, Soft, Non-Tender Extremities: Normal Inspection, Normal Range of Motion, Non-Tender, No Pedal Edema Neurological: No New Focal Deficit Psy/Mental Status: Alert, Normal Affect, Normal Mood Sepsis Event Note - Evaluation Sepsis Screening Result: No Definite Risk - Focused Exam Vital Signs: Vital Signs Temp Pulse Resp BP Pulse Ox 12/27/19 09:17 97.4 F 94 16 119/97 H 94 L 12/27/19 04:00 98.4 F 65 19 132/81 94 L 12/27/19 00:00 98.2 F 68 16 141/87 H 94 L - Problem List & Annotations (1) Colitis SNOMED Code(s): 62963777 Code(s): K52.9 - NONINFECTIVE GASTROENTERITIS AND COLITIS, UNSPECIFIED Status: Acute Current Visit: Yes (2) Diarrhea SNOMED Code(s): 68986900 Code(s): R19.7 - DIARRHEA, UNSPECIFIED Status: Acute Current Visit: Yes (3) COVID-19 SNOMED Code(s): 583583081 Code(s): U07.1 - COVID-19 Status: Acute Current Visit: Yes (4) Hx of laryngeal cancer SNOMED Code(s): 697177668, 073266095 Code(s): Z85.21 - PERSONAL HISTORY OF MALIGNANT NEOPLASM OF LARYNX Status: Chronic Current Visit: Yes (5) Tracheostomy dependent SNOMED Code(s): 554315909 Code(s): Z93.0 - TRACHEOSTOMY STATUS Status: Chronic Current Visit: Yes (6) HTN (hypertension) SNOMED Code(s): 66759564 Code(s): I10 - ESSENTIAL (PRIMARY) HYPERTENSION Status: Chronic Current Visit: Yes (7) Peripheral neuropathy SNOMED Code(s): 723790945 Code(s): G62.9 - POLYNEUROPATHY, UNSPECIFIED Status: Chronic Current Visit: Yes (8) Hypokalemia SNOMED Code(s): 05308076 Code(s): E87.6 - HYPOKALEMIA Status: Acute Current Visit: Yes (9) Hypomagnesemia SNOMED Code(s): 159005735 Code(s): E83.42 - HYPOMAGNESEMIA Status: Acute Current Visit: Yes - Problem List Review Problem List Initiated/Reviewed/Updated: Yes - My Orders Last 24 Hours: My Active Orders 12/26/19 16:47 Blood Glucose Check, Bedside [RC] Q6H Intake and Output [RC] Q12H Oxygen Therapy [RC] PRN Up With Assistance [RC] ASDIRECTED VTE/DVT Education [RC] PER UNIT ROUTINE Vital Signs [RC] Q4H Morphine 2 mg IVPUSH Q2H PRN Ondansetron [Zofran] 4 mg IVPUSH Q4H PRN Resuscitation Status Routine 12/26/19 16:49 Sodium Chloride 0.9% [Saline Flush] 2.5 ml FLUSH ASDIRECTED PRN Saline Lock Insert [OM.PC] Routine 12/26/19 16:52 Tracheostomy Care [RT Tracheostomy Assessment] [RC] ASDIRECTED 12/26/19 17:00 Dextrose 5%-0.45% NaCl [Dextrose 5%-1/2 NS] 1,000 ml IV Q8H Enoxaparin [Lovenox] 40 mg SUBCUT Q24H 12/26/19 21:00 Levofloxacin/Dextrose 5%-Water [Levaquin in D5W 750 MG/150 ML] 750 mg Premix Bag 1 bag IV Q24H 12/27/19 00:00 metroNIDAZOLE/Normal Saline [Flagyl 500 MG in NS 100 ML] 500 mg Premix Bag 1 bag IV Q6H 12/27/19 Breakfast Advance Diet Instructions [DIET] Clear Liquid Diet [DIET] 12/27/19 08:15 Potassium Phosphates 30 mmole Dextrose 5%-0.45% NaCl [Dextrose 5%-1/2 NS] 1,000 ml IV ONETIME 12/27/19 12:00 Phosphorus #1 [Neutra-Phos] 250 mg PO QID - Plan Plan:: This 64 year old male admitted with diarrhea, dehydration, hypokalemia and colitis, found to be COVID 19 positive. 1. Abdominal pain, diarrhea, colitis - CT revealed colitis - Obtain stool studies, no further diarrhea since admission - Continue with Flagyl add Levaquin - IVFs with D51/2 NS due to lower blood glucoses - Check BS every 6 hours - Increase diet to soft today as tolerated - Morphine PRN pain - Zofran PRN nausea 2. Hypokalemia, hypomagnesemia, hypophosphatemia - Will replace with 30 mmol potassium phosphate IV, equals 45 meq K, - Give 4 gm IV Magnesium - Recheck this afternoon. 3. Covid 19 - Could be cause of colitis - Monitor - No respiratory symptoms currently 4. HTN - Restart Lisinopril, monitor 5. Tracheostomy: - Cares per nursing - suctioning PRN VTE prophylaxis: Lovenox Dispo: 1-2 days
[2019-12-27] MEDS: Lisinopril 10 MG Tab PO SCH (12:21)
[2019-12-27] MEDS: Phosphorus #1 250 MG Tab PO SCH ×3 (12:21→23:54)
[2019-12-27 15:48] LABS: POTASSIUM,K 3.3 mmol/L (3.5-5.1)
[2019-12-27] MEDS: Enoxaparin 40 MG/0.4 ML Syringe SUBCUT SCH (17:23)
[2019-12-27] MEDS: Levofloxacin/Dextrose 5%-Water 750 MG in Premix Bag 1 BAG IV SCH (20:44)
[2019-12-28] MEDS: Dextrose 5%-0.45% NaCl 1,000 ML IV SCH (04:13)
[2019-12-28] MEDS: metroNIDAZOLE/Normal Saline 500 MG in Premix Bag 1 BAG IV SCH (05:48)
[2019-12-28] MEDS: Phosphorus #1 250 MG Tab PO SCH (05:49)
[2019-12-28 06:46] LABS: BLOOD UREA NITROGEN,BUN 10 mg/dL (7.0-18.0); CARBON DIOXIDE,CO2 25.8 mmol/L (21.0-32.0); CHLORIDE,CL 102 mmol/L (98-107); GLUCOSE RANDOM 80 mg/dL (74-106); POTASSIUM,K 3.1 mmol/L (3.5-5.1); SODIUM,NA 138 mmol/L (136-148)
[2019-12-28] MEDS ORDERED: Potassium Chloride 20 MEQ Tab.ER PO ONE (07:24)
[2019-12-28] MEDS ORDERED: Magnesium Sulfate/Water 2 GM/50 ML Premix Bag IV ONE (07:25)
[2019-12-28] MEDS ORDERED: Magnesium Sulfate/Water 2 GM/50 ML BAG IV ONE (07:30)
[2019-12-28] MEDS: Lisinopril 10 MG Tab PO SCH (08:24)
[2019-12-28 08:26] VITALS: BP 147/93
--- NOTE | 2019-12-28 09:34 | PCM.DCSUM1 ---
Discharge Summary - Discharge Data Discharge Date: 12/28/19 Discharge Disposition: Home, Self-Care 01 Condition: Good - Referral to Home Health Primary Care Physician: PCP None - Patient Summary/Data Hospital Course: 64 year old male with pmh of laryngeal cancer s/p trach, HTN and peripheral neuropathy presented to the ED with diarhhea, nausea, vomiting, and generalized weakness. He was found to colitis on CT scan of abdomen. He was also covid positive. He was admitted and treated with IV fluids with supplementation of potassium, phosphate, and magnesium. He was treated with Levaquin and Flagyl. Patient did have resolution of his diarrhea and today he is requesting discharge home. He was discharged home to have follow up with the [facility]. - Discharge Plan *PRESCRIPTION DRUG MONITORING PROGRAM REVIEWED*: Not Applicable *COPY OF PRESCRIPTION DRUG MONITORING REPORT IN PATIENT SNEHA: Not Applicable Prescriptions/Med Rec: Ciprofloxacin [Ciprofloxacin HCl] 500 mg PO BID #20 tab metroNIDAZOLE [Flagyl] 500 mg PO Q8H #30 tab Potassium Chloride [Klor-Con M20] 20 meq PO DAILY #5 tab.er Home Medications: Home Meds Simvastatin [Zocor] 20 mg PO BEDTIME 08/20/17 [History] Lubricating Top Jelly Bacterio 1 applic TOP ASDIRECTED 12/27/18 [History] Sennosides 8.6 mg PO BID 12/27/18 [History] lisinopriL [Prinivil] 20 mg PO DAILY 12/26/19 [History] Acetaminophen/HYDROcodone [[place] 325-5 MG] 1 tab PO Q6H PRN 12/27/19 [History] Gabapentin [Neurontin] 300 mg PO TID 12/27/19 [History] Ciprofloxacin [Ciprofloxacin HCl] 500 mg PO BID #20 tab 12/28/19 [Rx] Potassium Chloride [Klor-Con M20] 20 meq PO DAILY #5 tab.er 12/28/19 [Rx] metroNIDAZOLE [Flagyl] 500 mg PO Q8H #30 tab 12/28/19 [Rx] Patient Handouts: Diarrhea, Adult, COVID-19 Frequently Asked Questions, Potassium chloride tablets, extended-release tablets or capsules, COVID-19: How to Protect Yourself and Others - CDC, Infection Prevention in the Home, Colitis, Ciprofloxacin tablets, Metronidazole tablets or capsules, Prevent the Spread of COVID-19 if You Are Sick - CDC Referrals: Shahbaz Coppola, [facility] [Ordering Only Provider] - 12/08/20 12:30 pm - Discharge Summary/Plan Comment DC Time >30 min.: No - Patient Data Vitals - Most Recent: Last Vital Signs Temp 35.8 C L 12/28/19 04:57 Pulse 65 12/28/19 04:57 Resp 15 12/28/19 04:57 BP 147/93 H 12/28/19 08:24 Pulse Ox 93 L 12/28/19 04:57 Weight - Most Recent: 89 kg I&O - Last 24 hours: Intake & Output 12/27/19 12/28/19 12/28/19 22:59 06:59 14:59 Intake Total 1458 1200 Output Total 400 600 Balance 1058 600 Lab Results - Last 24 hrs: Laboratory Results - last 24 hr 12/27/19 12/27/19 12/27/19 Range/Units 11:34 15:01 17:32 WBC (4.0-11.0) K/uL RBC (4.50-5.90) M/uL Hgb (13.0-17.0) g/dL Hct (38.0-50.0) % MCV (80.0-98.0) fL MCH (27.0-32.0) pg MCHC (31.0-37.0) g/dL RDW Std Deviation (28.0-62.0) fl RDW Coeff of Aster (11.0-15.0) % Plt Count (150-400) K/uL MPV (7.40-12.00) fL Add Manual Diff Neutrophils % (Manual) (48.0-80.0) % Band Neutrophils % % Lymphocytes % (Manual) (16.0-40.0) % Monocytes % (Manual) (0.0-15.0) % Nucleated RBC % /100WBC Absolute Seg Neuts (1.4-5.7) Band Neutrophils # Lymphocytes # (Manual) (0.6-2.4) Monocytes # (Manual) (0.0-0.8) Nucleated RBCs # K/uL Sodium (136-148) mmol/L Potassium 3.3 L (3.5-5.1) mmol/L Chloride (98-107) mmol/L Carbon Dioxide (21.0-32.0) mmol/L BUN (7.0-18.0) mg/dL Creatinine (0.8-1.3) mg/dL Est Cr Clr Drug Dosing mL/min Estimated GFR (MDRD) ml/min Glucose (74-106) mg/dL POC Glucose 92 95 (60-110) mg/dL Calcium (8.5-10.1) mg/dL Phosphorus (2.6-4.7) mg/dL Magnesium 1.9 (1.8-2.4) mg/dL 12/27/19 12/28/19 12/28/19 Range/Units 23:56 05:40 05:40 WBC 3.77 L (4.0-11.0) K/uL RBC 3.55 L (4.50-5.90) M/uL Hgb 10.2 L (13.0-17.0) g/dL Hct 31.1 L (38.0-50.0) % MCV 87.6 (80.0-98.0) fL MCH 28.7 (27.0-32.0) pg MCHC 32.8 (31.0-37.0) g/dL RDW Std Deviation 50.2 (28.0-62.0) fl RDW Coeff of Aster 15 (11.0-15.0) % Plt Count 238 (150-400) K/uL MPV 9.90 (7.40-12.00) fL Add Manual Diff YES Neutrophils % (Manual) 63 (48.0-80.0) % Band Neutrophils % 17 % Lymphocytes % (Manual) 12 L (16.0-40.0) % Monocytes % (Manual) 8 (0.0-15.0) % Nucleated RBC % 0.0 /100WBC Absolute Seg Neuts 2.4 (1.4-5.7) Band Neutrophils # 0.6 Lymphocytes # (Manual) 0.5 L (0.6-2.4) Monocytes # (Manual) 0.3 (0.0-0.8) Nucleated RBCs # 0 K/uL Sodium 138 (136-148) mmol/L Potassium 3.1 L (3.5-5.1) mmol/L Chloride 102 (98-107) mmol/L Carbon Dioxide 25.8 (21.0-32.0) mmol/L BUN 10 (7.0-18.0) mg/dL Creatinine 1.2 (0.8-1.3) mg/dL Est Cr Clr Drug Dosing 57.24 mL/min Estimated GFR (MDRD) > 60.0 ml/min Glucose 80 (74-106) mg/dL POC Glucose 87 (60-110) mg/dL Calcium 6.7 L (8.5-10.1) mg/dL Phosphorus 2.3 L (2.6-4.7) mg/dL Magnesium 1.6 L (1.8-2.4) mg/dL 12/28/19 Range/Units 05:58 WBC (4.0-11.0) K/uL RBC (4.50-5.90) M/uL Hgb (13.0-17.0) g/dL Hct (38.0-50.0) % MCV (80.0-98.0) fL MCH (27.0-32.0) pg MCHC (31.0-37.0) g/dL RDW Std Deviation (28.0-62.0) fl RDW Coeff of Aster (11.0-15.0) % Plt Count (150-400) K/uL MPV (7.40-12.00) fL Add Manual Diff Neutrophils % (Manual) (48.0-80.0) % Band Neutrophils % % Lymphocytes % (Manual) (16.0-40.0) % Monocytes % (Manual) (0.0-15.0) % Nucleated RBC % /100WBC Absolute Seg Neuts (1.4-5.7) Band Neutrophils # Lymphocytes # (Manual) (0.6-2.4) Monocytes # (Manual) (0.0-0.8) Nucleated RBCs # K/uL Sodium (136-148) mmol/L Potassium (3.5-5.1) mmol/L Chloride (98-107) mmol/L Carbon Dioxide (21.0-32.0) mmol/L BUN (7.0-18.0) mg/dL Creatinine (0.8-1.3) mg/dL Est Cr Clr Drug Dosing mL/min Estimated GFR (MDRD) ml/min Glucose (74-106) mg/dL POC Glucose 87 (60-110) mg/dL Calcium (8.5-10.1) mg/dL Phosphorus (2.6-4.7) mg/dL Magnesium (1.8-2.4) mg/dL [place] Results - Last 24 hrs: Microbiology 12/27/19 21:00 C. difficile Antigen & Toxins A,B - Final Stool / Feces Med Orders - Current: Current Medications Enoxaparin Sodium (Lovenox) 40 mg SUBCUT Q24H [facility] Last Admin: 12/27/19 17:23 Dose: 40 mg Documented by: Metronidazole 500 mg/ Premix 100 mls @ 100 mls/hr IV Q6H [facility] Last Admin: 12/28/19 05:48 Dose: 100 mls/hr Documented by: Levofloxacin/Dextrose 750 mg/ (Premix) 150 mls @ 100 mls/hr IV Q24H [facility] Last Admin: 12/27/19 20:44 Dose: 100 mls/hr Documented by: Lisinopril (Prinivil) 20 mg PO DAILY [facility] Last Admin: 12/28/19 08:24 Dose: 20 mg Documented by: Morphine Sulfate (Morphine) 2 mg IVPUSH Q2H PRN PRN Reason: Pain (severe 7-10) Ondansetron HCl (Zofran) 4 mg IVPUSH Q4H PRN PRN Reason: Nausea Sodium Chloride (Saline Flush) 2.5 ml FLUSH ASDIRECTED PRN PRN Reason: Keep Vein Open Sodium Phosphate (Neutra-Phos) 250 mg PO QID [facility] Last Admin: 12/28/19 05:49 Dose: 250 mg Documented by: Discontinued Medications Sodium Chloride (Normal Saline) 1,000 mls @ 999 mls/hr IV BOLUS ONE Stop: 12/26/19 14:15 Last Admin: 12/26/19 14:26 Dose: 999 mls/hr Documented by: Potassium Chloride/Sodium Chloride (Normal Saline With 20 Meq Kcl) 1,000 mls @ 500 mls/hr IV ONETIME ONE Stop: 12/26/19 17:59 Last Admin: 12/26/19 16:10 Dose: 500 mls/hr Documented by: Levofloxacin/Dextrose 750 mg/ (Premix) 150 mls @ 100 mls/hr IV Q24H [facility] Last Admin: 12/26/19 18:38 Dose: Not Given Documented by: Dextrose/Sodium Chloride (Dextrose 5%-1/2 Ns) 1,000 mls @ 125 mls/hr IV Q8H YUSUF Last Admin: 12/28/19 04:13 Dose: Not Given Documented by: Magnesium Sulfate 4 gm/ Premix 100 mls @ 33.333 mls/hr IV ONETIME ONE Stop: 12/26/19 19:48 Last Admin: 12/26/19 18:09 Dose: 33.333 mls/hr Documented by: Metronidazole 500 mg/ Premix 100 mls @ 100 mls/hr IV ONETIME ONE Stop: 12/26/19 19:14 Last Admin: 12/26/19 18:09 Dose: 100 mls/hr Documented by: Potassium Phosphate 30 mmole/ (Dextrose/Sodium Chloride) 1,010 mls @ 125 mls/hr IV ONETIME ONE Stop: 12/27/19 16:19 Last Admin: 12/27/19 09:10 Dose: 125 mls/hr Documented by: Magnesium Sulfate (Magnesium Sulfate In Water Premix) 2 gm in 50 mls @ 50 mls/hr IV ONETIME ONE Stop: 12/28/19 08:29 Last Admin: 12/28/19 08:25 Dose: 50 mls/hr Documented by: Potassium Bicarbonate (Klor-Con Ef) 50 meq PO NOW STA Stop: 12/26/19 15:24 Last Admin: 12/26/19 16:00 Dose: 50 meq Documented by: Potassium Chloride (Klor-Con M20) 40 meq PO ONETIME ONE Stop: 12/27/19 08:39 Last Admin: 12/27/19 09:09 Dose: 40 meq Documented by: Potassium Chloride (Klor-Con M20) 40 meq PO ONETIME ONE Stop: 12/27/19 16:06 Last Admin: 12/27/19 17:23 Dose: 40 meq Documented by: Potassium Chloride (Klor-Con M20) 60 meq PO ONETIME ONE Stop: 12/28/19 07:25 Last Admin: 12/28/19 08:25 Dose: 60 meq Documented by: Prochlorperazine Edisylate (Compazine) 10 mg IVPUSH ONETIME ONE Stop: 12/26/19 13:17 Last Admin: 12/26/19 14:26 Dose: 10 mg Documented by: Sodium Chloride (Saline Flush) 10 ml FLUSH ASDIRECTED PRN PRN Reason: Keep Vein Open Sodium Chloride (Saline Flush) 10 ml FLUSH ASDIRECTED PRN PRN Reason: Keep Vein Open Sodium Chloride (Saline Flush) 2.5 ml FLUSH ASDIRECTED PRN PRN Reason: Keep Vein Open
[2019-12-28 11:32] VITALS: PULSE 63
== END 2019-12-28 11:20 | disposition home or self-care (01) | DRG 179 ==
LOC: MW.ED 11:53 → MW.MS 15:53 → MW.ICU 17:44 → MW.MS 12-27 13:34
PROVIDERS: ADMIT Student in an Organized Health Care Education/Training Program; ATTEND Student in an Organized Health Care Education/Training Program
DX: U07.1 COVID-19 (principal); K52.9 Noninfective gastroenteritis and colitis, unspecified; E87.6 Hypokalemia; E83.42 Hypomagnesemia; R19.7 Diarrhea, unspecified; H54.7 Unspecified visual loss; E86.0 Dehydration; E66.9 Obesity, unspecified; K21.9 Gastro-esophageal reflux disease without esophagitis; E78.00 Pure hypercholesterolemia, unspecified; I10 Essential (primary) hypertension; E11.9 Type 2 diabetes mellitus without complications; M19.90 Unspecified osteoarthritis, unspecified site; E11.42 Type 2 diabetes mellitus with diabetic polyneuropathy; Z85.21 Personal history of malignant neoplasm of larynx; Z93.0 Tracheostomy status; Z79.899 Other long term (current) drug therapy; Z91.030 Bee allergy status; Z88.8 Allergy status to other drugs, medicaments and biological substances; Z68.30 Body mass index [BMI] 30.0-30.9, adult
CPT/HCPCS: 36415; 74176; 80053; 81001; 83690; 83735; 85025; 93005; 96374; 99285; J0780; J7030; 80048; 82962; 84100; 84132; 87045; 87046; 87324; 87449; 87899; 93010; 99222; 99232; 99238; A9270-GY; J1650; J1956; J3475; J3480; J3490; J7042; U0002

== ENCOUNTER 2021-09-17 11:37 | Emergency (ER) | payer OTHER, MEDICARE ==
[2021-09-17] MEDS ORDERED: Sodium Chloride 0.9% 10 ML Syringe FLUSH PRN (12:06)
[2021-09-17] MEDS ORDERED: Sodium Chloride 0.9% 2.5 ML Syringe FLUSH PRN (12:06)
[2021-09-17 12:07] VITALS: BP 167/108; PULSE 96
[2021-09-17 12:46] LABS: CARBON DIOXIDE,CO2 24.8 mmol/L (21.0-32.0); POTASSIUM,K 3.5 mmol/L (3.5-5.1)
[2021-09-17] MEDS ORDERED: Iopamidol 755 MG/ML 500 ML Multipack Bottle IVPUSH STA (14:14)
== END 2021-09-17 16:13 | disposition home or self-care (01) ==
LOC: MW.ED 11:37
DX: U07.1 COVID-19 (principal); J12.82 Pneumonia due to coronavirus disease 2019; R04.2 Hemoptysis; I10 Essential (primary) hypertension; E78.00 Pure hypercholesterolemia, unspecified; K21.9 Gastro-esophageal reflux disease without esophagitis; E11.9 Type 2 diabetes mellitus without complications; E66.9 Obesity, unspecified; Z68.32 Body mass index [BMI] 32.0-32.9, adult; Z79.899 Other long term (current) drug therapy; Z88.8 Allergy status to other drugs, medicaments and biological substances
CPT/HCPCS: 36415; 71045; 71275; 80053; 82947; 85025; 85379; 87635; 93005; 99285; J3490; Q9967; 93010; 99284; U0002